=== PATIENT | male | born 1980 | race Caucasian/White ===

== ENCOUNTER 2016-12-29 08:27 | Emergency (ER) | payer OTHER ==
[2016-12-29 08:32] VITALS: BMI 24.3
--- NOTE | 2016-12-29 08:48 | DR.GENAD ---
HPI - PCP Primary Care Physician: franklin - Complaint/Symptoms Chief Complaint Doctors Comments: Patient admits to diarrhea for two days and nausea. Denies fever or cough. He admits to a half pack per days cigarettes smoking since high school. Chief Complaint:: patient stated he thinks he has a virus since 5 days ago went to work this morning and got worse. - Source History Provided: Patient - Mode of Arrival Mode of Arrival: Ambulatory - Timing Onset of Chief Complaint: 12/24/16 PMH - PMH Past Medical History: No Past Surgical History: Yes Surgical History: Appendectomy Past Surgical History Comment: kidney removed - Family History History of Family Medical Conditions: No - Social History Does patient currently use any type of tobacco product: Yes Have you used tobacco products in the last 12 months: Yes Type of Tobacco Use: Cigarettes How many years tobacco product used: 20 Does any household member use tobacco: No Alcohol Use: Rarely Do you use any recreational Drugs:: No Lives With: Alone Lives Where: Home - infectious screening In the last 2 months have you had wt loss of >10#?: NO Have you had fever, night sweats or hemotysis?: No Have you traveled outside the country in the last 6 months?: No Isolation: Standard ROS - Review of Systems Constitutional: No Symptoms Reported Eyes: No Symptoms Reported ENTM: No Symptoms Reported Respiratoy: No Symptoms Reported Cardiovascular: No Symptoms Reported Gastrointestinal/Abdominal: No Symptoms Reported Genitourinary: No Symptoms Reported Neurological: No Symptoms Reported Musculoskeletal: No Symptoms Reported Integumentary: No Symptoms Reported Hematologic/Lymphatic: No Symptoms Reported Endocrine: No Symptoms Reported Psychiatric: No Symptoms Reported All Other Systems: Reviewed and Negative PE - Vital Signs Vitals: Temperature 98.8 F Pulse Rate [Left Brachial] 90 Pulse Rate 112 Respiratory Rate 16 Blood Pressure [Left Arm] 122/64 Blood Pressure 130/71 O2 Sat by Pulse Oximetry 98 - General General Appearance: Alert, In No Apparent Distress - Head Head Exam: Normal Inspection, Atraumatic - Eyes Eye exam: Normal Appearance, PERRL, EOMI - ENT ENT Exam: Normal Exam External Ear Exam: Normal External Inspection TM/Canal Exam: Bilateral Normal Nose Exam: Normal Nose Exam, Sinus Tenderness Mouth Exam: Normal Inspection Throat Exam: Normal Inspection - Neck Neck Exam: Normal Inspection, Full ROM - Chest Chest Inspection: Normal Inspection - Respiratory Respiratory Exam: Bilateral Clear to Auscultation - Cardiovascular Cardiovascular Exam: Regular Rate, Normal Rhythm - Abdominal Exam Abdominal Exam: Normal Bowel Sounds Abdominal Tenderness: Diffuse - Extremities Extremities Exam: Normal Inspection, Full ROM - Back Back Exam: Normal Inspection - Neurologic Neurological Exam: Alert, Oriented X3, CN II-XII Intact - Psychiatric Psychiatric Exam: Normal Affect - Skin Skin Exam: Warm, Dry, Intact ROR - Labs Reviewed Result Diagrams: 12/29/16 08:55 12/29/16 08:55 Laboratory: WBC 8.8 X10^3/uL (3.6-10.0) 12/29/16 08:55 RBC 5.03 X10^6/uL (4.7-6.0) 12/29/16 08:55 Hgb 15.6 g/dL (13.5-18.0) 12/29/16 08:55 Hct 44.9 % (42.0-54.0) 12/29/16 08:55 MCV 89.4 fL (80.0-100.0) 12/29/16 08:55 MCH 31.0 pg (27.0-34.0) 12/29/16 08:55 MCHC 34.7 g/dL (33.0-35.0) 12/29/16 08:55 RDW 12.6 % (11.6-16.5) 12/29/16 08:55 Plt Count 277 X10^3/uL (150.0-450.0) 12/29/16 08:55 MPV 7.4 fL (7.4-11.0) 12/29/16 08:55 Neut % 76.0 % (42.0-75.0) H 12/29/16 08:55 Lymph % 9.3 % (21.0-51.0) L 12/29/16 08:55 [place] % 13.1 % (0.0-13.0) H 12/29/16 08:55 Eos % 0.9 % (0.9-2.9) 12/29/16 08:55 Baso % 0.7 % (0.2-1.0) 12/29/16 08:55 Neut # 6.7 x10^3/uL (2.2-4.8) H 12/29/16 08:55 Lymph # 0.8 X10^3/uL (1.3-2.9) L 12/29/16 08:55 [place] # 1.2 x10^3/uL (0.3-0.8) H 12/29/16 08:55 Eos # 0.1 x10^3/uL (0.0-0.2) 12/29/16 08:55 Baso # 0.1 X10^3/uL (0.0-0.1) 12/29/16 08:55 Absolute Nucleated RBC 0.1 /100WBC 12/29/16 08:55 Sodium 138 mmol/L (136-145) 12/29/16 08:55 Corrected Sodium TNP 12/29/16 08:55 Potassium 4.0 mmol/L (3.5-5.1) 12/29/16 08:55 Chloride 104 mmol/L (98-107) 12/29/16 08:55 Carbon Dioxide 24.6 mmol/L (21-32) 12/29/16 08:55 BUN 11 mg/dL (7-18) 12/29/16 08:55 Creatinine 1.67 mg/dL (0.70-1.30) H 12/29/16 08:55 Est GFR (MDRD) Af Amer 60 (>60) 12/29/16 08:55 Est GFR (MDRD) Non-Af 49 (>60) L 12/29/16 08:55 Glucose 95 mg/dL (65-99) 12/29/16 08:55 Calcium 9.5 mg/dL (8.5-10.1) 12/29/16 08:55 Corrected Calcium TNP 12/29/16 08:55 Total Bilirubin 0.40 mg/dL (0.2-1.0) 12/29/16 08:55 AST 21 Units/L (15-37) 12/29/16 08:55 ALT 30 Units/L (12-78) 12/29/16 08:55 Alkaline Phosphatase 60 Units/L (46-116) 12/29/16 08:55 C-Reactive Protein 122.30 mg/L (0-3.0) H 12/29/16 08:55 Total Protein 7.5 g/dL (6.4-8.2) 12/29/16 08:55 Albumin 3.8 g/dL (3.4-5.0) 12/29/16 08:55 Globulin 3.7 g/dL (2.5-4.5) 12/29/16 08:55 Albumin/Globulin Ratio 1.0 Ratio (1.1-2.1) L 12/29/16 08:55 Specimen Type Clean catch urine 12/29/16 10:23 Urine Color Yellow (YELLOW) 12/29/16 10:23 Urine Appearance Clear (CLEAR) 12/29/16 10:23 Urine pH 7.0 (5.0 - 8.0) 12/29/16 10:23 Ur Specific [place] 1.010 (1.000-1.030) 12/29/16 10:23 Urine Protein 2+ (NEGATIVE) 12/29/16 10:23 Urine Glucose (UA) Negative (NEGATIVE) 12/29/16 10:23 Urine Ketones Negative (NEGATIVE) 12/29/16 10:23 Urine Occult Blood 2+ (NEGATIVE) 12/29/16 10:23 Urine Nitrite Negative (NEGATIVE) 12/29/16 10:23 Urine Bilirubin Negative (NEGATIVE) 12/29/16 10:23 Urine Urobilinogen Normal (NORMAL) 12/29/16 10:23 Ur Leukocyte Esterase 1+ (NEGATIVE) 12/29/16 10:23 Urine RBC 2-6 /HPF (NEGATIVE) 12/29/16 10:23 Urine WBC 2-4 /HPF (NEGATIVE) 12/29/16 10:23 Ur Squamous Epith Cells Rare /HPF (NEGATIVE) 12/29/16 10:23 Amorphous Sediment Trace /HPF (NEGATIVE) 12/29/16 10:23 Urine Bacteria Negative /HPF (NEGATIVE) 12/29/16 10:23 Ur Culture Indicated? No/not indicated 12/29/16 10:23 H. pylori IgG Antibody Negative (NEGATIVE) 12/29/16 08:55 - XRAY XRAY Interpreted by: Radiologist (Chest: No acute cardiopulmonary disease) - Diagnosis Discharge Problem: Acute viral disease Diarrhea Qualifiers: Diarrhea type: unspecified type Qualified Code(s): R19.7 - Diarrhea, unspecified - Discharge Plan Condition: Stable - Follow ups/Referrals Follow ups/Referrals: Giovanny Decker [Primary Care Provider] - 3 days - Instructions
[2016-12-29] MEDS ORDERED: NS 1000 ML 1,000 ML IV ONE (08:50)
[2016-12-29] MEDS ORDERED: NS 1000 ML 1,000 ML ONE (09:02)
[2016-12-29 09:04] LABS: BASOPHILS # (AUTO) 0.1 X10^3/uL (0.0-0.1); BASOPHILS % (AUTO) 0.7 % (0.2-1.0); EOSINOPHILS # (AUTO) 0.1 x10^3/uL (0.0-0.2); EOSINOPHILS % (AUTO) 0.9 % (0.9-2.9); HEMATOCRIT 44.9 % (42.0-54.0); HEMOGLOBIN 15.6 g/dL (13.5-18.0); LYMPHOCYTES # (AUTO) 0.8 X10^3/uL (1.3-2.9); LYMPHOCYTES % (AUTO) 9.3 % (21.0-51.0); MEAN CORPUSCULAR HGB CONC 34.7 g/dL (33.0-35.0); MEAN CORPUSCULAR VOLUME 89.4 fL (80.0-100.0); MEAN PLATELET VOLUME 7.4 fL (7.4-11.0); MONOCYTES # (AUTO) 1.2 x10^3/uL (0.3-0.8); MONOCYTES % (AUTO) 13.1 % (0.0-13.0); NEUTROPHILS # (AUTO) 6.7 x10^3/uL (2.2-4.8); PLATELET COUNT 277 X10^3/uL (150.0-450.0); RED BLOOD COUNT 5.03 X10^6/uL (4.7-6.0); RED CELL DISTRIBUTION WIDTH 12.6 % (11.6-16.5); WHITE BLOOD COUNT 8.8 X10^3/uL (3.6-10.0)
[2016-12-29] MEDS ORDERED: ZOFRAN INJ 4 MG VIAL IVP ONE (09:06)
[2016-12-29] MEDS ORDERED: ZOFRAN INJ 4 MG VIAL ONE (09:08)
[2016-12-29 09:15] LABS: ALANINE AMINOTRANSFERASE 30 Units/L (12-78); ALBUMIN 3.8 g/dL (3.4-5.0); ALKALINE PHOSPHATASE 60 Units/L (46-116); ASPARTATE AMINO TRANSFERASE 21 Units/L (15-37); BLOOD UREA NITROGEN 11 mg/dL (7-18); CALCIUM 9.5 mg/dL (8.5-10.1); CARBON DIOXIDE 24.6 mmol/L (21-32); CHLORIDE 104 mmol/L (98-107); CREATININE 1.67 mg/dL (0.70-1.30); GLUCOSE 95 mg/dL (65-99); SODIUM 138 mmol/L (136-145); TOTAL PROTEIN 7.5 g/dL (6.4-8.2); eGFR BLACK RACES 60 (>60); eGFR NON BLACK RACES 49 (>60)
[2016-12-29 10:35] LABS: BILIRUBIN,URINE NEGATIVE (NEGATIVE); BLOOD/HEMOGLOBIN,URINE 2+ (NEGATIVE); GLUCOSE, URINE NEGATIVE (NEGATIVE); KETONES,URINE NEGATIVE (NEGATIVE); LEUKOCYTE ESTERASE ,URINE 1+ (NEGATIVE); NITRITES,URINE NEGATIVE (NEGATIVE); PROTEIN,URINE 2+ (NEGATIVE); UROBILINOGEN,URINE NORMAL (NORMAL)
[2016-12-29 10:47] LABS: AMORPHOUS SEDIMENT,UR TRACE /HPF (NEGATIVE); APPEARANCE,URINE CLEAR (CLEAR); BACTERIA,URINE NEGATIVE /HPF (NEGATIVE); COLOR,URINE YELLOW (YELLOW); SQUAMOUS EPITHELIAL CELL,UR RARE /HPF (NEGATIVE)
[2016-12-29 10:55] VITALS: BP 122/64
--- NOTE | 2016-12-29 13:01 | RAD ---
HISTORY: Vomiting Study: Chest one view AP portable Comparison: None Findings: The trachea is midline. The cardiac silhouette is unremarkable. The lungs are clear without focal i nfiltrate or effusion. The bony thorax is unremarkable. IMPRESSION: 1. No acute cardiopulmonary disease. Reported By:
== END 2016-12-29 11:05 | disposition home or self-care (01) ==
LOC: ER 08:37
DX: R19.7 Diarrhea, unspecified (principal); B34.9 Viral infection, unspecified
CPT/HCPCS: 36415; 71010; 80053; 81001; 85025; 86140; 86677; 96365; 96374; 99282; 99283; A4222; J2405